=== PATIENT | female | born 1975 | race African-American/Black ===

== ENCOUNTER → 2018-08-16 | Day surgery (SDC) | payer OTHER | END | disposition home or self-care (01) | LOC: FMAMMOTONE 11:49 | PROVIDERS: ATTEND Surgery Surgical Oncology | PROC: 0HBU3ZX Excision of Left Breast, Percutaneous Approach, Diagnostic (ICD-10-PCS; principal; 2018-08-16) | DX: Z53.8 Procedure and treatment not carried out for other reasons (principal); R92.1 Mammographic calcification found on diagnostic imaging of breast | CPT/HCPCS: 19081; 77065-TC ==

== ENCOUNTER 2018-09-11 10:30 | Day surgery (SDC) | payer OTHER ==
[2018-08-29 15:41] VITALS: BMI 25.5
--- NOTE | 2018-08-31 12:13 | HP ---
Admitting History and Physical - Primary Care Physician PCP: Jose Lyon - Admission Chief Complaint: right breast LCIS History of Present Illness: Patient is a 42 yo female who was noted to have a right 1 o'clock .9 cm mass 3 cm FN and left upper central asym persisting on left diagnostic mammo (not seen on US). US done confirmed the right 1 o'clock mass as well as a left 6 o'clock mass. Patient underwent an US core bx of the right 1 o'clock mass which was c/ w LCIS/fibroadenoma and the left 6 o'clock mass was a fibrodenoma. A stereo was recommended for the left upper central asym but due to review of the MRI and prior studies, the bx was deferred (Birads 3) Patient is now presenting for right WE with NL. 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 ...LMP: 08/02/18 ...: No Additional Past Medical History: IBS - Past Surgical History Past Surgical History: Yes: None - Smoking History Smoking history: Current every day smoker Have you smoked in the past 12 months: Yes Aproximately how many cigarettes per day: 3 - Alcohol/Substance Use Hx Alcohol Use: No Home Medications - Allergies Allergies/Adverse Reactions: Allergies Allergy/AdvReac Type Severity Reaction Status Date / Time envirnmental Allergy Uncoded 08/29/18 15:33 - Home Medications Home Medications: Ambulatory Orders Cetirizine HCl [Zyrtec -] 5 mg PO DAILY 08/29/18 Linaclotide [Linzess] 290 mcg PO DAILY 08/29/18 Family Disease History - Family Disease History Other Family History: maternal greast GM (uterine/cervical cancer) Physical Examination Constitutional: Yes: Well Nourished, Calm Cardiovascular: Yes: WNL, Regular Rate and Rhythm Respiratory: Yes: CTA Bilaterally Breast(s): Yes: Other (Breasts are symmetrical without skin changes or nipple discharge. The breasts are diffusely nodular and dense but without suspicious masses noted.) Problem List - Problems (1) Lobular carcinoma in situ (LCIS) of right breast Code(s): D05.01 - LOBULAR CARCINOMA IN SITU OF RIGHT BREAST Assessment/Plan Plan; right breast WE with NL.
[2018-09-11] MEDS ORDERED: LIDOCAINE HCL 1%, 10 MG/ML (20ML VIAL) ONE (11:05)
[2018-09-11] MEDS ORDERED: BUPIVACAINE HCL 0.25% 125 MG/50 ML VIAL ONE (11:05)
[2018-09-11] MEDS ORDERED: GUM MASTIC/STORAX/MSAL/ALCOHOL 1 DRP DROPSBTL MC ONE (11:06)
[2018-09-11] MEDS ORDERED: DEXTROSE 5%-0.45% SALINE 1,000 ML IV SCH (14:15)
[2018-09-11] MEDS ORDERED: ONDANSETRON 4 MG/2 ML VIAL IVPUSH PRN ×2 (14:15→15:45)
[2018-09-11] MEDS ORDERED: KETOROLAC TROMETHAMINE 30 MG/1 ML VIAL IVPUSH PRN (14:15)
[2018-09-11] MEDS ORDERED: MIDAZOLAM HCL 2 MG/2 ML SINGLE DOSE VIAL ONE (14:46)
[2018-09-11] MEDS ORDERED: SUCCINYLCHOLINE CHLORIDE 200 MG/10 ML VIAL ONE (14:46)
[2018-09-11] MEDS ORDERED: PROPOFOL 20 ML ONE ×2 (14:46)
[2018-09-11] MEDS ORDERED: ONDANSETRON 4 MG/2 ML VIAL ONE (14:52)
[2018-09-11] MEDS ORDERED: KETOROLAC TROMETHAMINE 30 MG/1 ML VIAL ONE (14:52)
[2018-09-11] MEDS ORDERED: DEXAMETHASONE SOD PHOSPHATE 4 MG/1 ML VIAL ONE (14:52)
[2018-09-11] MEDS ORDERED: LIDOCAINE HCL 2% JELLY (5 ML/TUBE) ONE (14:52)
[2018-09-11] MEDS ORDERED: LIDOCAINE HCL/PF 2% SDV 5ML VIAL ONE (14:53)
[2018-09-11] MEDS ORDERED: oxyCODONE HCL 5 MG TABLET PO PRN ×2 (15:45)
[2018-09-11] MEDS ORDERED: PROMETHAZINE HCL 25 MG/1 ML VIAL IVPUSH PRN (15:45)
[2018-09-11] MEDS ORDERED: oxyCODONE HCL 5 MG TABLET ONE (16:35)
[2018-09-11 17:23] VITALS: BP 126/76; PULSE 71; TEMP 98
--- NOTE | 2018-09-11 18:17 | OP ---
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 PROCEDURE: Right mammographically localized wide excision. ANESTHESIA: General, intubated. ATTENDING SURGEON: Milagro Lyon MD DYEING MACHINE BACK TENDER: OG Meza ESTIMATED BLOOD LOSS: Minimal. COMPLICATIONS: None. PROCEDURE: Patient was made aware of the risks and benefits of the procedure and consented. Preoperatively she went to the radiology suite where a needle and wire was placed next to the index lesion. She was then placed in the supine position on the operating room table. After general anesthesia was induced, the patient was intubated. The operative site was then prepped and draped in usual sterile fashion. A curvilinear periareolar incision was then made. Using electrocautery thick skin flaps were made. Needle was drawn through the puncture site and a wire through the wound. Tissues around the wire were then sharply excised and submitted with a short suture superior, long suture lateral. Specimen radiographically confirmed the presence of the index lesion. The wound was copiously irrigated with normal saline. Hemostasis was maintained by electrocautery. Palpation of the rest of the cavity revealed no suspicious abnormalities. This was then closed with deep 2-0 and 3-0 Vicryl, followed by a running subcuticular 4-0 Monocryl. Steri-Strips, sterile dressing, and a compression bra were then applied. The patient tolerated the procedure and was transferred to recovery in excellent condition. Incidentally prior to going to recovery, local anesthesia mixed in a 1:1 ratio with 1% lidocaine and 0.5% bupivacaine was used for preemptive anesthesia. MILAGRO LYON M.D. [id number]
--- NOTE | 2018-09-18 12:18 | PATH ---
Surgical Pathology Report Patient Name: CATA GOLDMAN [facility]. Rec. #: [id number] /Age/Gender: 1975 (Age: 42) / F Account: [id number] Location: [facility] AMBULATORY Taken: 09/11/2018 Received: 09/11/2018 Reported: 09/18/2018 Physicians: Jose Lyon M.D. Specimen(s) Received BREAST MASS Clinical History FA with atypia Final Diagnosis RIGHT BREAST, WIDE EXCISION: BREAST TISSUE WITH ATYPICAL LOBULAR HYPERPLASIA, FIBROADENOMA, AND STROMAL FIBROSIS IN SURROUNDING BREAST TISSUE. REACTIVE CHANGES AT PRIOR BIOPSY SITE PRESENT. Electronically Signed Halie Mitchell M.D. Gross Description Received in formalin, labeled "wide excision right breast," is a 2.6 x 2.3 x 1.2 cm. penn-yellow, irregular, portion of fibroadipose tissue. There is no needle localization wire present. There is a short suture marking the superior aspect and a long suture marking the lateral aspect, per the surgeon. There is no skin or nipple present. The specimen is inked as follows: superior and lateral blue; inferior green; medial yellow; anterior red; deep black. The specimen is serially sectioned from superior to inferior. Sectioning reveals a 0.9 x 0.6 x 0.5 cm penn, firm, well-circumscribed mass abutting the anterior margin and focally abutting the lateral margin. The mass contains a card metallic biopsy clip. The specimen is entirely and sequentially submitted in 6 cassettes with the superior margin in cassette 1, the inferior margin in cassette 6 and the mass in cassettes 3-4. Total formalin fixation time: Approximately 24 hours 09/12/201809/12/2018
== END 2018-09-11 17:10 | disposition home or self-care (01) ==
LOC: FASU 17:10
PROVIDERS: ATTEND Surgery Surgical Oncology
PROC: 0HBT0ZZ Excision of Right Breast, Open Approach (ICD-10-PCS; principal; 2018-09-11 14:57)
DX: D05.01 Lobular carcinoma in situ of right breast (principal); D24.1 Benign neoplasm of right breast; F17.210 Nicotine dependence, cigarettes, uncomplicated
CPT/HCPCS: 19281; 84703; 88307-TC; 94760